=== PATIENT | female | born 1930 | race Caucasian/White ===

== ENCOUNTER → 2017-09-10 | Outpatient (REF) | payer OTHER, MEDICAID ==
[~2017-09-10] MED LIST: ATEN100T PO; CALCTAB68 PO; CART120C PO; COUM1TAB17 PO; COUM2.5T17 PO; FERR1TAB8 PO; FISH1000 PO; LEVO112T25 PO; VICO5TAB16 PO; VITA10002 PO; VITA100066 PO; VITMTA PO; ZOLP5TAB PO
[2017-09-10 17:40] LABS: PERCENT SATURATION 36.9 % (13.2-45.0)
== END ==
LOC: M LAB REF 16:54
PROVIDERS: ATTEND Internal Medicine
DX: D50.9 Iron deficiency anemia, unspecified (principal)

== ENCOUNTER → 2018-02-08 | Outpatient (REF) | payer OTHER, MEDICAID ==
[2018-02-09 13:29] LABS: IRON (FE) 62 UG/DL (50-170); PERCENT SATURATION 17.8 % (13.2-45.0); TOTAL IRON BINDING CAPACITY 348 UG/DL (250-450)
== END ==
LOC: M LAB REF 12:37
DX: D50.9 Iron deficiency anemia, unspecified (principal)
CPT/HCPCS: 83550

== ENCOUNTER 2018-03-26 10:52 | Emergency (ER) | payer OTHER, MEDICAID ==
[2018-03-26 10:20] LABS: BASO % 0.5 % (0.0-1.0); EOS # 0.1 10^3/uL (0.0-0.50); EOS % 1.1 % (0.0-3.0); HEMATOCRIT 36.5 % (36.0-47.0); HEMOGLOBIN 11.5 g/dl (12.0-15.5); IMMATURE GRANULOCYTE % 0.2 % (0-3.0); LYMPH # 1.2 10^3/uL (1.5-4.5); LYMPH % 17.5 % (24.0-44.0); MEAN CORPUSCULAR HEMOGLOBIN 27.4 pg (27.0-33.0); MEAN CORPUSCULAR HGB CONC 31.5 g/dl (32.0-36.5); MEAN CORPUSCULAR VOLUME 87.1 fl (80.0-96.0); MONO # 0.7 10^3/uL (0.0-0.8); MONO % 10.4 % (0.0-5.0); NEUTROPHILS # 4.6 10^3/uL (1.8-7.7); NEUTROPHILS % 70.3 % (36.0-66.0); PLATELET COUNT, AUTOMATED 296 10^3/uL (150-450); RED BLOOD COUNT 4.19 10^6/uL (4.00-5.40); RED CELL DISTRIBUTION WIDTH 13.4 % (11.5-14.5); WHITE BLOOD COUNT 6.6 10^3/uL (4.0-10.0)
[2018-03-26 10:31] LABS: INR 2.27; PROTHROMBIN TIME 25.9 SECONDS (12.4-14.5)
[2018-03-26 10:43] LABS: ALBUMIN 3.8 GM/DL (3.2-5.2); ALBUMIN/GLOBULIN RATIO 1.09 (1.00-1.93); ALKALINE PHOSPHATASE 101 U/L (45-117); ALT/SGPT 16 U/L (12-78); ANION GAP 10 MEQ/L (8-16); AST/SGOT 18 U/L (7-37); BILIRUBIN,DIRECT 0.2 MG/DL (0.0-0.2); BILIRUBIN,TOTAL 0.6 MG/DL (0.2-1.0); BLOOD UREA NITROGEN 18 MG/DL (7-18); CALCIUM LEVEL 8.8 MG/DL (8.8-10.2); CARBON DIOXIDE LEVEL 26 MEQ/L (21-32); CHLORIDE LEVEL 106 MEQ/L (98-107); CPK CREATINE PHOSPHOKINASE 57 U/L (26-192); CREATININE FOR GFR 0.96 MG/DL (0.55-1.30); GLOMERULAR FILTRATION RATE 58.4 (>32); GLUCOSE, FASTING 113 MG/DL (70-100); MAGNESIUM LEVEL 2.1 MG/DL (1.8-2.4); PHOSPHORUS LEVEL 3.4 MG/DL (2.5-4.9); POTASSIUM SERUM 3.9 MEQ/L (3.5-5.1); SODIUM LEVEL 142 MEQ/L (136-145); TOTAL PROTEIN 7.3 GM/DL (6.4-8.2); TROPONIN I 0.02 NG/ML (< 0.10)
[2018-03-26 10:48] LABS: CK-MB VALUE MASS 1.4 NG/ML (<3.6); FREE T4 1.43 NG/DL (0.76-1.46); MB/CK RELATIVE INDEX 2.45 (< OR =4)
== END 2018-03-26 13:05 | disposition home or self-care (01) ==
LOC: M ED 10:52
DX: I48.91 Unspecified atrial fibrillation (principal); I45.19 Other right bundle-branch block; I44.4 Left anterior fascicular block; I10 Essential (primary) hypertension; F41.9 Anxiety disorder, unspecified; Z95.0 Presence of cardiac pacemaker; Z79.01 Long term (current) use of anticoagulants; Z79.899 Other long term (current) drug therapy
CPT/HCPCS: 71046

== ENCOUNTER → 2018-07-26 | Outpatient (REF) | payer OTHER, MEDICAID | LOC: M LAB REF 12:23 | DX: N39.0 Urinary tract infection, site not specified (principal); R41.82 Altered mental status, unspecified | CPT/HCPCS: 87086 ==

== ENCOUNTER → 2018-08-12 | Outpatient (REF) | payer OTHER, MEDICAID ==
[2018-08-12 18:20] LABS: FOLATE > 24.0 NG/ML
== END ==
LOC: M LAB REF 17:16
DX: R41.82 Altered mental status, unspecified (principal)
CPT/HCPCS: 82746